=== PATIENT | male | born 1950 | race Caucasian/White ===

== ENCOUNTER 2024-02-15 14:05 | Inpatient (IN) | payer OTHER, MEDICARE ==
[~2024-02-15] VITALS: Ht 175.3 cm; Wt 80.0 kg
[2024-02-15 16:18] LABS: ALANINE AMINOTRANSFERASE 17 U/L (12-78); ALBUMIN 1.8 G/DL (3.4-5.0); ALBUMIN/GLOBULIN RATIO 0.5 (1.1-1.5); ALKALINE PHOSPHATASE 72 IU/L (46-116); ANION GAP 5 (8-16); ASPARTATE AMINO TRANSFERASE 22 U/L (10-37); BILIRUBIN,TOTAL 0.4 MG/DL (0.1-1.0); BLOOD UREA NITROGEN 28 MG/DL (7-18); BUN/CREATININE RATIO 4.4 (10.0-20.0); CALCIUM 8.3 MG/DL (8.5-10.1); CHLORIDE 98 MMOL/L (99-107); CREATININE 6.31 MG/DL (0.60-1.10); GLUCOSE 130 MG/DL (70-104); POTASSIUM 3.8 MMOL/L (3.5-5.1); SODIUM 137 MMOL/L (135-145); TOTAL PROTEIN 5.3 G/DL (6.4-8.2); eCRCL 10 ML/MIN; eGFR 9 ML/MIN
[2024-02-15 16:28] LABS: BASOPHILS % (AUTO) 0.3 % (0-1); EOSINOPHILS # (AUTO) 0.1 X10'3 (0-0.9); EOSINOPHILS % (AUTO) 1.3 % (0-6); HEMOGLOBIN 7.7 g/dl (14.0-17.9); LYMPHOCYTES # (AUTO) 0.6 X10'3 (1.1-4.8); LYMPHOCYTES % (AUTO) 9.5 % (21-51); MEAN CORPUSCULAR HGB CONC 33.6 g/dL (33.0-36.5); MEAN CORPUSCULAR VOLUME 98.2 FL (78-98); MEAN PLATELET VOLUME 8.6 FL (7.4-10.4); MONOCYTES # (AUTO) 0.6 X10'3 (0-0.9); NEUTROPHILS # (AUTO) 4.9 X10'3 (1.8-7.7); NEUTROPHILS % (AUTO) 78.9 % (42-75); PLATELET COUNT 136 X10'3 (140-440); PRO BRAIN NATRIURETIC PEPTIDE 12785 PG/ML (0-450); RED BLOOD COUNT 2.35 X10'6 (4.70-6.10); RED CELL DISTRIBUTION WIDTH 15.8 % (11.5-14.5); WHITE BLOOD COUNT 6.2 X10'3 (4.5-11.0)
[2024-02-15] MEDS ORDERED: APIX5TAB3 PO (16:54)
[2024-02-15] MEDS ORDERED: ROSU40TA89 PO (16:55)
[2024-02-15] MEDS ORDERED: CYAN500T71 PO (16:56)
[2024-02-15] MEDS ORDERED: UBID200C37 PO (16:59)
[2024-02-15] MEDS ORDERED: MOME13HF11 INH (16:59)
[2024-02-15] MEDS ORDERED: FLO0.4C PO (17:00)
[2024-02-15] MEDS ORDERED: ALB0.5UD NEB (17:01)
[2024-02-15] MEDS ORDERED: potassium Cl 40MEQ/1/2NS 520ml 520 ML IV PRN (18:00)
[2024-02-15] MEDS ORDERED: ondansetron/PF 4mg/2ml inj IV PRN (18:00)
[2024-02-15] MEDS ORDERED: magnesium sulf-water 4G/100mL 100 ML IV PRN (18:00)
[2024-02-15] MEDS ORDERED: magnesium Cl slow-release 64mg tablet PO PRN (18:00)
[2024-02-15] MEDS ORDERED: potassium Cl 20 mEq SR tablet PO PRN (18:00)
[2024-02-15] MEDS ORDERED: magnesium sulf-water 2g/50mL 50 ML IV PRN (18:00)
[2024-02-15 18:14] LABS: BILIRUBIN,URINE NEGATIVE (Neg); CLARITY,URINE CLEAR (Clear); COLOR,URINE YELLOW (Yellow); GLUCOSE, URINE 500 mg/dl (Neg); KETONES,URINE NEGATIVE (Neg); LEUKOCYTE ESTERASE ,URINE NEGATIVE (Neg); NITRITES, URINE NEGATIVE (Neg); OCCULT BLOOD,URINE TRACE-INTACT (Neg); PH,URINE 8.5 (4.8-8.0); PROTEIN,URINE >=300 mg/dl (Neg); UROBILINOGEN,URINE 0.2 E.U/dL (0.2-1.0)
[2024-02-15 18:16] LABS: UA COLLECTION TYPE CLN CATCH MIDSTREAM
[2024-02-15 18:25] LABS: MAGNESIUM 1.9 MG/DL (1.5-2.4); PHOSPHORUS 4.8 MG/DL (2.3-4.5)
[2024-02-15 18:29] LABS: APTT 34 SECONDS (22-32); INR 1.3 INR; PROTHROMBIN TIME 12.9 SECONDS (9.0-12.0)
[2024-02-15 18:29] LABS: BACTERIA,URINE NONE SEEN /HPF (Neg); RBC,URINE 0-2 /HPF (0-2); SQUAMOUS EPITHELIAL CELL,UR NONE SEEN /LPF (FEW); WBC,URINE 0-4 /HPF (0-4)
[2024-02-15] MEDS ORDERED: albumin (human) 25% 100ml IV 100 ML IV PRN (18:45)
[2024-02-15 18:54] LABS: HEMOGLOBIN A1C 5.1 % (4.5-6.2)
[2024-02-15] MEDS: heparin 1,000 units/ml 10ml inj HE ONE ×2 (19:16)
[2024-02-15] MEDS: heparin 1,000unit/ml 10ml vial 10 ML IV ONE (19:17)
[2024-02-15] MEDS: EPOETIN ALFA-EPBX 20,000 UNIT/ML 1 ML MDV IV ONE (19:17)
[2024-02-15] MEDS: heparin 1,000 units/ml 10ml inj IV ONE (19:17)
[2024-02-15] MEDS: K and/or MAG REPLACEMENT MC SCH (20:00)
[2024-02-15] MEDS: apixaban 5mg tablet PO SCH (20:16)
[2024-02-15] MEDS: atorvastatin 20mg tablet PO SCH (20:17)
[2024-02-15] MEDS: non-formulary drug (Mometasone/Formoterol (Dulera 200 Mcg/5 Mcg Inhaler) 2 PUFFS) PO SCH (21:00)
[2024-02-15 21:15] VITALS: BP 131/71; PULSE 99; RESP 18; TEMP 96.7; O2SAT 96
[2024-02-15] MEDS: albuterol 2.5 MG/3 ML nebule NEB SCH (23:52)
[2024-02-15 23:54] VITALS: PULSE 71; RESP 18; O2SAT 94
[2024-02-16] VITALS (16 sets, daily range): BP systolic 96–137; BP diastolic 42–106; PULSE 61–104; RESP 13–20; TEMP 97.8–98.9; O2SAT 91–96
[2024-02-16] MEDS: acetaminophen 325mg tablet PO PRN (03:51)
[2024-02-16 07:31] LABS: BASOPHILS % (AUTO) 0.4 % (0-1); EOSINOPHILS # (AUTO) 0.1 X10'3 (0-0.9); EOSINOPHILS % (AUTO) 1.6 % (0-6); HEMATOCRIT 22.4 % (42.0-52.0); HEMOGLOBIN 7.6 g/dl (14.0-17.9); LYMPHOCYTES # (AUTO) 0.6 X10'3 (1.1-4.8); LYMPHOCYTES % (AUTO) 9.5 % (21-51); MEAN CORPUSCULAR HEMOGLOBIN 33.3 PG (27.0-31.0); MEAN CORPUSCULAR HGB CONC 33.7 g/dL (33.0-36.5); MEAN CORPUSCULAR VOLUME 99.1 FL (78-98); MEAN PLATELET VOLUME 8.7 FL (7.4-10.4); MONOCYTES # (AUTO) 0.8 X10'3 (0-0.9); NEUTROPHILS # (AUTO) 4.7 X10'3 (1.8-7.7); NEUTROPHILS % (AUTO) 75.5 % (42-75); PLATELET COUNT 148 X10'3 (140-440); RED BLOOD COUNT 2.27 X10'6 (4.70-6.10); RED CELL DISTRIBUTION WIDTH 15.9 % (11.5-14.5); WHITE BLOOD COUNT 6.3 X10'3 (4.5-11.0)
[2024-02-16 07:48] LABS: % IRON SATURATION 13 % (11-46); IRON 27 UG/DL (53-167); TOTAL IRON BINDING CAPACITY 208 UG/DL (259-388)
[2024-02-16] MEDS: tamsulosin 0.4mg capsule PO SCH (08:30)
[2024-02-16] MEDS: cyanocobalamin 500mcg tablet PO SCH (08:30)
[2024-02-16 08:49] LABS: ALBUMIN 1.7 G/DL (3.4-5.0); ANION GAP 8 (8-16); BLOOD UREA NITROGEN 14 MG/DL (7-18); BUN/CREATININE RATIO 3.4 (10.0-20.0); CALCIUM 7.8 MG/DL (8.5-10.1); CHLORIDE 106 MMOL/L (99-107); CHOL/HDL RATIO 1.8 (0.00-4.99); CHOLESTEROL 94 MG/DL (0-200); CREATININE 4.06 MG/DL (0.60-1.10); GLUCOSE 95 MG/DL (70-104); HDL CHOLESTEROL 52 MG/DL (35-60); LDL CHOLESTEROL 36 MG/DL (50-100); MAGNESIUM 1.8 MG/DL (1.5-2.4); POTASSIUM 3.4 MMOL/L (3.5-5.1); SODIUM 143 MMOL/L (135-145); TOTAL CARBON DIOXIDE 29.1 MMOL/L (24-32); eCRCL 15 ML/MIN; eGFR 14 ML/MIN
[2024-02-16 09:07] LABS: TRIGLYCERIDES 65 MG/DL (20-135)
[2024-02-16] MEDS: potassium Cl 20 mEq SR tablet PO PRN (12:11)
[2024-02-16] MEDS: metoprolol tartrate 1mg/ml inj IV SCH (14:00)
[2024-02-16] MEDS: iron polysaccharide complex 150mg capsule PO SCH (20:36)
[2024-02-16] MEDS ORDERED: diphenhydrAMINE 2%/zinc acetate cream TP PRN (20:45)
[2024-02-17] VITALS (22 sets, daily range): BP systolic 100–124; BP diastolic 46–68; PULSE 65–104; RESP 16–18; TEMP 97.8–98.4; O2SAT 94–98
[2024-02-17] MEDS: magnesium sulf-water 2g/50mL 50 ML IV ONE (06:07)
[2024-02-17] MEDS: metoprolol succinate 25mg (24-HOUR) SR. Tablet PO SCH (06:34)
[2024-02-17 07:33] LABS: BASOPHILS % (AUTO) 0.6 % (0-1); EOSINOPHILS # (AUTO) 0.3 X10'3 (0-0.9); EOSINOPHILS % (AUTO) 4.3 % (0-6); HEMATOCRIT 22.3 % (42.0-52.0); HEMOGLOBIN 7.5 g/dl (14.0-17.9); LYMPHOCYTES # (AUTO) 0.8 X10'3 (1.1-4.8); LYMPHOCYTES % (AUTO) 13.3 % (21-51); MEAN CORPUSCULAR HEMOGLOBIN 33.4 PG (27.0-31.0); MEAN CORPUSCULAR HGB CONC 33.4 g/dL (33.0-36.5); MEAN CORPUSCULAR VOLUME 99.9 FL (78-98); MEAN PLATELET VOLUME 8.6 FL (7.4-10.4); MONOCYTES # (AUTO) 0.8 X10'3 (0-0.9); NEUTROPHILS # (AUTO) 4.1 X10'3 (1.8-7.7); NEUTROPHILS % (AUTO) 68.8 % (42-75); PLATELET COUNT 150 X10'3 (140-440); RED BLOOD COUNT 2.23 X10'6 (4.70-6.10); WHITE BLOOD COUNT 5.9 X10'3 (4.5-11.0)
[2024-02-17 08:46] LABS: ALBUMIN 1.7 G/DL (3.4-5.0); ANION GAP 8 (8-16); BLOOD UREA NITROGEN 27 MG/DL (7-18); BUN/CREATININE RATIO 4.6 (10.0-20.0); CALCIUM 7.8 MG/DL (8.5-10.1); CHLORIDE 105 MMOL/L (99-107); CREATININE 5.88 MG/DL (0.60-1.10); GLUCOSE 82 MG/DL (70-104); MAGNESIUM 1.9 MG/DL (1.5-2.4); PHOSPHORUS 3.9 MG/DL (2.3-4.5); POTASSIUM 3.6 MMOL/L (3.5-5.1); SODIUM 141 MMOL/L (135-145); TOTAL CARBON DIOXIDE 28.2 MMOL/L (24-32); eCRCL 11 ML/MIN; eGFR 9 ML/MIN
[2024-02-17] MEDS ORDERED: albumin (Human) 5% 250ml 250 ML IV PRN (14:00)
[2024-02-18] VITALS: BP 124/63; PULSE 73; RESP 16; TEMP 98.1; O2SAT 97
[2024-02-18] MEDS: acetaminophen 325mg tablet PO PRN (00:39)
[2024-02-18] MEDS: magnesium sulf-water 2g/50mL 50 ML IV ONE (03:33)
[2024-02-18 06:00] VITALS: BP 119/66; PULSE 60; RESP 14; TEMP 97.7; O2SAT 94
[2024-02-18 06:30] LABS: BASOPHILS % (AUTO) 0.7 % (0-1); EOSINOPHILS # (AUTO) 0.4 X10'3 (0-0.9); EOSINOPHILS % (AUTO) 6.8 % (0-6); HEMATOCRIT 23.8 % (42.0-52.0); HEMOGLOBIN 7.8 g/dl (14.0-17.9); LYMPHOCYTES # (AUTO) 0.7 X10'3 (1.1-4.8); LYMPHOCYTES % (AUTO) 13.6 % (21-51); MEAN CORPUSCULAR HEMOGLOBIN 32.9 PG (27.0-31.0); MEAN CORPUSCULAR HGB CONC 32.9 g/dL (33.0-36.5); MEAN CORPUSCULAR VOLUME 99.8 FL (78-98); MEAN PLATELET VOLUME 8.2 FL (7.4-10.4); MONOCYTES # (AUTO) 0.8 X10'3 (0-0.9); MONOCYTES % (AUTO) 14.1 % (2-12); NEUTROPHILS # (AUTO) 3.5 X10'3 (1.8-7.7); NEUTROPHILS % (AUTO) 64.8 % (42-75); PLATELET COUNT 156 X10'3 (140-440); RED BLOOD COUNT 2.38 X10'6 (4.70-6.10); RED CELL DISTRIBUTION WIDTH 17.9 % (11.5-14.5); WHITE BLOOD COUNT 5.4 X10'3 (4.5-11.0)
[2024-02-18 06:39] LABS: ALBUMIN 1.6 G/DL (3.4-5.0); ANION GAP 7 (8-16); BLOOD UREA NITROGEN 15 MG/DL (7-18); BUN/CREATININE RATIO 3.9 (10.0-20.0); CHLORIDE 107 MMOL/L (99-107); CREATININE 3.81 MG/DL (0.60-1.10); GLUCOSE 84 MG/DL (70-104); MAGNESIUM 2.5 MG/DL (1.5-2.4); POTASSIUM 4.3 MMOL/L (3.5-5.1); SODIUM 141 MMOL/L (135-145); eCRCL 16 ML/MIN; eGFR 16 ML/MIN
[2024-02-18 08:00] VITALS: RESP 18; O2SAT 98
[2024-02-18] MEDS ORDERED: heparin 1,000 units/ml 10ml inj HE ONE ×2 (08:00)
[2024-02-18] MEDS ORDERED: heparin 1,000unit/ml 10ml vial 10 ML IV ONE (08:00)
[2024-02-18] MEDS ORDERED: EPOETIN ALFA-EPBX 20,000 UNIT/ML 1 ML MDV IV ONE (08:00)
[2024-02-18] MEDS ORDERED: heparin 1,000 units/ml 10ml inj IV ONE (08:00)
[2024-02-18 08:15] LABS: ANISOCYTOSIS 1+; PLATELET ESTIMATE NORMAL
[2024-02-18 08:17] LABS: POLYCHROMASIA FEW
[2024-02-21 05:46] LABS: HBSAG SCREEN Negative (Negative); HEP B SURF AB Non Reactive (.)
== END 2024-02-18 10:40 | disposition home or self-care (01) | DRG 312 ==
LOC: ER 14:05 → ED HOLD 17:19 → EDBEDREQTM 20:33 → EDBEDREQ 20:33 → EDBEDREQSVC 20:33 → ORTHO 4S 21:20
PROVIDERS: ADMIT Family Medicine; ATTEND Family Medicine
PROC: 5A1D70Z Performance of Urinary Filtration, Intermittent, Less than 6 Hours Per Day (ICD-10-PCS; principal; 2024-02-15)
PROC: 5A1D70Z Performance of Urinary Filtration, Intermittent, Less than 6 Hours Per Day (ICD-10-PCS; 2024-02-17)
DX: I95.1 Orthostatic hypotension (principal); N18.6 End stage renal disease; I12.0 Hypertensive chronic kidney disease with stage 5 chronic kidney disease or end stage renal disease; E85.9 Amyloidosis, unspecified; I49.9 Cardiac arrhythmia, unspecified; E11.22 Type 2 diabetes mellitus with diabetic chronic kidney disease; D64.9 Anemia, unspecified; E78.5 Hyperlipidemia, unspecified; I48.91 Unspecified atrial fibrillation; J45.909 Unspecified asthma, uncomplicated; D47.2 Monoclonal gammopathy; E83.39 Other disorders of phosphorus metabolism; Z82.49 Family history of ischemic heart disease and other diseases of the circulatory system; Z99.2 Dependence on renal dialysis; Z87.891 Personal history of nicotine dependence; Z86.73 Personal history of transient ischemic attack (TIA), and cerebral infarction without residual deficits
CPT/HCPCS: 36415; 70450; 71045; 80048; 80053; 80061; 81001; 83036; 83540; 83550; 83735; 83880; 84100; 84145; 84443; 84484; 85008; 85025; 85610; 85730; 86706; 87081; 87340; 93005; 94640; 94760; 97116; 97161; 99285; E1594; G0257; G0378; J3490